=== PATIENT | male | born 1945 | race Caucasian/White ===

== ENCOUNTER 2017-11-24 07:40 | Day surgery (SDC) | payer OTHER ==
--- NOTE | 2017-11-19 15:17 | RAD REPORT ---
EXAM DESCRIPTION: RAD - Chest Pa And Lat (2 Views) - 11/19/2017 3:07 pm CLINICAL HISTORY: preop Chest pain. COMPARISON: Abdomen 1 View (KUB) dated 05/14/2017; Chest Pa And Lat (2 Views) dated 06/09/2016; Abdome n 1 View (KUB) dated 05/23/2016; ABDOMEN 1 VIEW KUB dated 06/04/2015 FINDINGS: The lungs are clear. The heart is upper limit normal in size with sternotomy wires present . No displaced fractures. IMPRESSION: No acute or concerning finding suspected.
[2017-11-19 15:32] LABS: Absolute Lymphocytes (CBC) 1.5 K/uL (0.7-4.9); Absolute Monocytes 0.5 K/uL (0.1-1.3); Absolute Neutrophil 4.8 K/uL (1.8-8.0); Basophils % 0.5 % (0-1.3); Eosinophils % 4.9 % (0-4.4); Hematocrit 45.2 % (39.6-49.0); Lymphocytes % 20.7 % (15.3-44.8); MCH 31.4 pg (27.0-35.0); MCV 91.1 fL (80-100); Monocytes % 7.2 % (3.3-12.3); RBC Red Blood Cell Count 4.96 M/uL (4.33-5.43)
[2017-11-19 15:46] LABS: Protime INR 1.22
[2017-11-19 15:54] LABS: Potassium 4.1 mmol/L (3.5-5.1)
[2017-11-24] MEDS ORDERED: NA CHLORIDE 0.9% 1,000 ML ONE (07:54)
[2017-11-24] MEDS ORDERED: LIDOCAINE 1% MPF 2 ML AMPULE ONE (09:24)
[2017-11-24] MEDS ORDERED: HEPARIN IV ONE (09:39)
[2017-11-24] MEDS ORDERED: FENTANYL CITR 100 MCG/2 ML ONE (09:39)
[2017-11-24] MEDS ORDERED: DEXTROSE IV ONE (09:39)
[2017-11-24] MEDS ORDERED: NA CHLORIDE 0.9% 0 ML ONE (09:39)
[2017-11-24] MEDS ORDERED: ATROPINE SULF 1 MG/10 ML SYR IV ONE (09:39)
[2017-11-24] MEDS ORDERED: MIDAZOLAM HCL 2 MG/2 ML INJ ONE ×2 (09:39→09:40)
[2017-11-24] MEDS ORDERED: HEPA 1000U/500MLS 2,000 UNIT/1,000 ML BAG IV ONE (09:40)
--- NOTE | 2017-11-24 20:34 | OP ---
Surgeon: Willis Boone MD Admitted to my service as an outpatient for heart catheterization. Procedures: Left heart catheterization, selective coronary arteriogram, left internal mammary artery injection, and injection of the vein graft to the obtuse marginal and the right coronary artery. Indication: Unstable angina and coronary artery disease. Procedure In Detail: Mr. Foster was admitted as an outpatient, prepped and draped in the routine ster ile fashion, given 2 mg of Versed for IV sedation. Right common femoral artery access was obtained w ith a 6-[place] sheath. Angio-Seal was used to close the case. Angiography there was normal. A 6-Fr ench catheters, Diann were used to do the catheterization. He was found to have a completely occlu ded [place] LAD, [place] OM, [place] RCA. The vein graft to the RCA and the vein graft to the OM was co mpletely occluded. The TOURE was patent to the distal LAD with excellent flow, and distal to the LAD. There were collaterals to the OM and the RCA. There were no complications. Blood Loss: 5 cc. Postoperative Diagnosis: Severe coronary artery disease. Plan: For medical therapy. I will add Imdur to his regimen. He will go home today. Restart the Xa relto tomorrow. Co-signal operator technical: Katheryn Jon. Total Conscious Sedation: 30 minutes. GISSELL/ALISHA Voice ID: [id number] Report ID: [id number]
== END 2017-11-24 12:19 | disposition home or self-care (01) ==
LOC: CCL 07:40
DX: I25.10 Atherosclerotic heart disease of native coronary artery without angina pectoris (principal); I25.810 Atherosclerosis of coronary artery bypass graft(s) without angina pectoris; I25.82 Chronic total occlusion of coronary artery; I48.92 Unspecified atrial flutter; I10 Essential (primary) hypertension; E78.2 Mixed hyperlipidemia; F17.200 Nicotine dependence, unspecified, uncomplicated; Z82.49 Family history of ischemic heart disease and other diseases of the circulatory system
CPT/HCPCS: 36415; 71046; 80048; 82962 ×2; 85025; 85610; 85730; 93455; C1760; C1893; J2001; J2250 ×2; J3010; J7030; J0583

== ENCOUNTER 2022-08-29 06:30 | Day surgery (SDC) | payer OTHER ==
[2022-08-29] MEDS ORDERED: Ringers Lactate 1,000 ML IV ONE ×2 (06:43→09:44)
[2022-08-29] MEDS ORDERED: propofoL 200 MG/20 ML VIAL IV ONE (07:18)
[2022-08-29] MEDS ORDERED: FENTANYL CITR 100 MCG/2 ML ONE (07:18)
[2022-08-29] MEDS ORDERED: LIDOCAINE 2% MPF 5 ML VIAL ONE ×2 (07:18→07:59)
[2022-08-29] MEDS ORDERED: ONDANSETRON 4 MG/2 ML VIAL ONE (07:19)
--- NOTE | 2022-08-29 07:31 | P.HP ---
Date of Service: 08/29/22 PC: This 77-year-old male presents for an examination under anesthesia, and repair of anal fissure. He also has a mass on the left side of his neck which we will excise. HPC: Patient has been complaining of perirectal pain for the last few months. Has failed medical treatment with sitz bath's stool softeners etc. States that it starts to heal but then comes right back again. PSHx: NAD [colonoscopy 2 years ago] PMHx: CHF, apparently episode of A-fib Social Hx: No known allergies, takes Xarelto and Lasix. He has also been on antibiotic recently Sys R: No cough, wheeze, shortness of breath. No chest pain or palpitations. Has urinary frequency aggravated by his Lasix therapy. O/E: Awake alert vital signs are stable HEENT: Within normal limits Chest: Chest movement equal bilaterally Abd: Negative [place]: Intact Data: Within normal limits Impression: Anal fissure Plan: I will take this patient to the operating room to do an examination under anesthesia, possible sphincterotomy, and address his anal fissure once we can evaluate it fully while he is asleep. The risks of this procedure have been discussed with the patient. The possibility of bleeding, infection, need for further surgeries and procedures were explained. Incontinence, ongoing issues in the area were explained. He understands and wants us to proceed.
[2022-08-29] MEDS ORDERED: KETAMINE HCL IN 0.9 % NACL 50 MG/5 ML SYRINGE IV ONE (08:00)
[2022-08-29] MEDS ORDERED: KETOROLAC 30 MG/ML INJ ONE (08:00)
[2022-08-29] MEDS ORDERED: DIPHENHYDRAMINE 50 MG/ML VIAL ONE (09:01)
[2022-08-29] MEDS ORDERED: dexAMETHasone 10 MG/ML VIAL ONE (09:01)
--- NOTE | 2022-08-29 09:01 | P.OP ---
Preoperative diagnosis: Anal fissure, mass left side of neck Postoperative diagnosis: Anal fissure, fistula, mass left side of neck Primary procedure: Lateral sphincterotomy Secondary procedure: Fistulotomy Other procedure(s): Excision of mass from the left side of the neck Specimen: Specimen from mass on left neck Operative Technique: The patient brought the operating room and placed supine on the table. After the induction of adequate anesthesia, the patient was placed in lithotomy position with his head rolled to the right side. After having prepped the areas with Betadine and draped in usual aseptic manner, attention was turned towards this mass on the left neck. A skin incision was made over it. This is after it had been injected with 1% lidocaine. This brought down through the skin and stanley bcutaneous tissue. We found this hard indurated mass consistent with most likely lymph node. This was excised from the surrounding tissue. It was quite fragmented when it came out. The area was checked for hemostasis. 2 6 as of 6 were used to control a bleeding blood vessel. The area was then packed with Surgicel cotton, and left open at this time. Attention was now turned towards the perianal area. After placing a rectal probe, we could visualize the lower anal canal. We could see that there was marked increased tone on the external sphincter. Using an 11 blade we were able to do a lateral sphincterotomy this was denied was brought through the mucosa onto the muscle and using gentle [id number] issue we were able to release the muscle with minimal swelling. At this point where we could only barely admit 2 fingers we now could easily get 3 inside. You could also palpate the muscle and see that we had greatly relieved any spasm in that area attention was now turned towards the actual perineal area we could see that there was an open inguinal fistula on the skin edge a probe was placed into this so this was traced upward this area was opened the underlying tissue was then excised using electrocautery the wound was left open at this point careful inspection around the rest of the anal canal did not show any other gross pathology he does have a few small insignificant internal and external hemorrhoids with some minimal skin tags these were all left alone. At this point the anal instruments were were withdrawn. Adequate hemostasis was insured. 1 stitch was placed across the fistulotomy site. Attention was turned back up towards the neck. This was noted to be dry the reason we delayed closure was because the patient is on Xarelto we will make sure we have her adequate hemostasis the area in the neck was now just loosely approximated with 2 sutures of chromic stitch sterile dressing was then applied. At the end of the procedure the patient was in a stable condition when sent to the recovery room. Needle sponge instrument count were correct. No drains were placed. Complications: None Transferred to: Recovery Room Condition: Good
[2022-08-29 09:30] VITALS: O2SAT 97
[2022-08-29 10:04] VITALS: BP 135/53; TEMP 96.9
== END 2022-08-29 12:00 | disposition home or self-care (01) ==
LOC: OR 06:30
PROVIDERS: ATTEND Surgery
PROC: 0JB50ZZ Excision of Left Neck Subcutaneous Tissue and Fascia, Open Approach (ICD-10-PCS; 2022-08-29)
PROC: 0D8R3ZZ Division of Anal Sphincter, Percutaneous Approach (ICD-10-PCS; principal; 2022-08-29 07:30)
DX: K60.2 Anal fissure, unspecified (principal); K60.3 Anal fistula; R22.1 Localized swelling, mass and lump, neck; M79.89 Other specified soft tissue disorders
CPT/HCPCS: 46080; 11422; 88304; 46270; J2704; J1200; J2001 ×2; J1100; J2405; J7120 ×2; 88305; J3010

== ENCOUNTER → 2023-02-18 | Day surgery (SDC) | payer OTHER ==
[~2023-02-18] MED LIST: ATROPINE SULF 1 MG/10 ML SYR IV ONE; FLUMAZENIL 0.1 MG/ML (5 mL VIAL) IV ONE; HYDRALAZINE HCL 20 MG/ML VIAL ONE; METOPROLOL TARTRATE 5 MG/5 ML INJ IV ONE; MIDAZOLAM HCL 10 ML ONE; NA CHLORIDE 0.9% 500 ML ONE
[2023-02-18 11:35] VITALS: TEMP 97.6
[2023-02-18 11:38] VITALS: BP 120/54; O2SAT 100
--- NOTE | 2023-02-18 18:07 | OP ---
Date of Procedure: 02/18/2023 Surgeon: MIL RAMIREZ Procedure Performed: Transesophageal echocardiogram. Indication: Mitral valve regurgitation. Description Of Procedure: After risks, benefits, and alternatives were explained, patient agreed to procedure and signed informed consent. Patient was brought into the OR room. After proper time-out, propofol was administered by Anesthesia and NIRMALA probe was inserted and NIRMALA was completed without dif ficulty. NIRMALA probe was removed and patient was sent to Recovery in stable condition. Conclusion: Successful transesophageal echocardiogram with severe mitral valve regurgitation. Plan: Mitral valve repair/replacement in the near future. /ALISHA Voice ID: [id number] Report ID: [id number]
--- NOTE | 2023-02-19 06:34 | TEE ---
TRANSESOPHAGEAL ECHOCARDIOGRAM REPORT CARDIOLOGY DEPARTMENT DATE OF STUDY: 02/18/2023 HEIGHT: 5'11" WEIGHT: 198 lbs DIAGNOSIS: MITRAL VALVE REGURGITATION SOCIAL SERVICES COMMENTS: NIRMALA CARDIAC HISTORY: CATHERIZATION: SURGERY: PROSTHETIC VALVE: PACEMAKER: 2 DIMENSIONAL ASSESSMENT: RIGHT ATRIUM: LEFT ATRIUM: RIGHT VENTRICLE: LEFT VENTRICLE: TRICUSPID VALVE: MITRAL VALVE: PULMONIC VALVE: AORTIC VALVE: PERICARDIAL EFFUSION: AORTIC ROOT: EJECTION FRACTION: 40-45 % LEFT VENTRICULAR WALL MOTION: DOPPLER/COLOR FLOW: COMMENTS: 1. TRANSESOPHAGEAL ECHOCARDIOGRAM PROBE WAS INSERTED, NO DIFFICULTY 2. SEVERE MITRAL REGURGITATION IS PRESENT 3. MILD TRICUSPID REGURGITATION 4. MILDLY DEPRESSED LEFT VENTRICULAR EJECTION FRACTION 40-45% TECHNOLOGIST: MARY JANE CHAVEZ
== END | disposition home or self-care (01) ==
LOC: EKG 06:00
PROVIDERS: ATTEND Internal Medicine
DX: I34.0 Nonrheumatic mitral (valve) insufficiency (principal); R79.89 Other specified abnormal findings of blood chemistry; I25.10 Atherosclerotic heart disease of native coronary artery without angina pectoris; I11.0 Hypertensive heart disease with heart failure; I50.22 Chronic systolic (congestive) heart failure; I48.0 Paroxysmal atrial fibrillation; I27.21 Secondary pulmonary arterial hypertension; Z87.891 Personal history of nicotine dependence; Z79.01 Long term (current) use of anticoagulants; Z79.899 Other long term (current) drug therapy; Z82.49 Family history of ischemic heart disease and other diseases of the circulatory system
CPT/HCPCS: 93312; J2250; J7040; J0360; J0461

== ENCOUNTER 2024-07-06 14:43 | Observation (INO) | payer OTHER ==
[2024-07-06] MEDS ORDERED: FUROSEMIDE 40 MG/4 ML VIAL ONE (15:52)
--- NOTE | 2024-07-06 16:18 | RAD REPORT ---
Procedure: Chest Single View HISTORY: Shortness of breath COMPARISON: 2022 FINDINGS: Mild bilateral pulmonary opacities No significant pleural effusion noted. The heart is markedly enlarged. Pacemaker leads/defibrillator in place. Post surgical changes involve the chest. IMPRESSION: These findings probably indicate mild CHF
[2024-07-06 16:30] LABS: Absolute Eosinophils 0.1 K/uL (0-0.5); Absolute Lymphocytes (CBC) 0.6 K/uL (0.7-4.9); Absolute Monocytes 0.6 K/uL (0.1-1.3); Absolute Neutrophil 5.5 K/uL (1.8-8.0); Basophils % 0.4 % (0-1.3); Eosinophils % 2.1 % (0-4.4); Hematocrit 40.4 % (39.6-49.0); Lymphocytes % 9.1 % (15.3-44.8); MCH 30.8 pg (27.0-35.0); MCHC 34.6 g/dL (32.0-36.0); MCV 89.1 fL (80-100); MPV 9.4 fL (7.6-11.3); Monocytes % 8.1 % (3.3-12.3); Neutrophils % 80.3 % (41.7-73.7); Nucleated Red Blood Cells % 0.1 % (0-0); Platelets 116 thou/uL (152-406); RBC Red Blood Cell Count 4.53 M/uL (4.33-5.43); Red Cell Distribution Width 15.2 % (12.1-15.2)
[2024-07-06 16:50] LABS: Albumin 3.3 g/dL (3.4-5.0); Albumin/Globulin Ratio 0.9 (1.1-1.8); Anion Gap 6.7 mEq/L (5.0-15.0); Bilirubin Direct 0.5 mg/dL (0-0.2); Bilirubin Indirect, Calculated 0.7 mg/dL (0.2-0.8); Bilirubin Total 1.2 mg/dL (0.2-1.0); Globulin 3.7 g/dL (2.3-3.5); Potassium 3.7 mEq/L (3.5-5.1); Troponin High Sensitivity 28.8 pg/mL (<58.9)
--- NOTE | 2024-07-06 17:06 | ER ---
Nurse's Notes [facility] Name: Tushar Foster Jr Age: 79 yrs Sex: Male : 1945 Arrival Date: 07/06/2024 Time: 14:43 Bed 13 Private MD: Diagnosis: CHF exacerbation Presentation: 07/06 15:09 Chief complaint: Patient states: edema on legs and my lungs , no SOB , Dr. Cheema iw wanted him to be admitted , + cough, no SOB. Coronavirus screen: At this time, the client does not indicate any symptoms associated with coronavirus-19. Ebola Screen: No symptoms or risks identified at this time. Initial Sepsis Screen: Does the patient meet any 2 criteria? No. Patient's initial sepsis screen is negative. Does the patient have a suspected source of infection? No. Patient's initial sepsis screen is negative. Risk Assessment: Do you want to hurt yourself or someone else? Patient reports no desire to harm self or others. Onset of symptoms was June 04, 2024. 15:09 Method Of Arrival: Ambulatory iw 15:09 Acuity: LAURA 3 iw Historical: - Allergies: 15:11 No Known Allergies; iw - PSHx: 15:11 mitral valve and pacemaker; iw - Immunization history:: Adult Immunizations up to date. - Infectious Disease History:: Denies. - Social history:: Smoking status: Patient reports the use of cigarette tobacco products, cigars. - Family history:: not pertinent. Screenin:[facility] ED Fall Risk Assessment (Adult) History of falling in the last 3 months, ph including since admission No falls in past 3 months (0 pts) Confusion or Disorientation No (0 pts) Intoxicated or Sedated No (0 pts) Impaired Gait No (0 pts) Mobility Assist Device Used No (0 pt) Altered Elimination No (0 pt) Score/Fall Risk Level 0 - 2 = Low Risk Oriented to surroundings, Maintained a safe environment, Hourly rounding (assess needs \T\ fall precautionary measures) done. Abuse screen: Denies threats or abuse. Denies injuries from another. Nutritional screening: No deficits noted. Tuberculosis screening: No symptoms or risk factors identified. Assessment: 16:21 General: Appears in no apparent distress. comfortable, well groomed, Behavior is calm, ph cooperative, appropriate for age. Pain: Denies pain. Neuro: Level of Consciousness is awake, alert, obeys commands, Oriented to person, place, time, situation. Cardiovascular: Reports shortness of breath, Capillary refill < 3 seconds in bilateral fingers Patient's skin is warm and dry. Rhythm is ventricular pacer. Respiratory: Reports shortness of breath at rest on exertion cough that is non-productive, Airway is patent Respiratory effort is even, unlabored, Breath sounds with crackles bilaterally. Derm: Skin is pink, warm \T\ dry. 18:08 Reassessment: Patient appears in no apparent distress at this time. Patient and/or ph family updated on plan of care and expected duration. Pain level reassessed. Patient is alert, oriented x 3, equal unlabored respirations, skin warm/dry/pink. 18:29 Reassessment: Patient appears in no apparent distress at this time. Patient and/or ph family updated on plan of care and expected duration. Pain level reassessed. Patient is alert, oriented x 3, equal unlabored respirations, skin warm/dry/pink. 20:30 Reassessment: No changes from previously documented assessment. Patient and/or family rg5 updated on plan of care and expected duration. Pain level reassessed. Patient is alert, oriented x 3, equal unlabored respirations, skin warm/dry/pink. Vital Signs: 15:09 BP 118 / 86; Pulse 90; Resp 18; Temp 98.9; Pulse Ox 98% on R/A; Weight 90.72 kg; Height iw 5 ft. 11 in. ; 16:30 BP 121 / 82; Pulse 81; Resp 19; Pulse Ox 95% ; ph 18:08 BP 127 / 74; Pulse 83; Resp 18; Pulse Ox 98% on R/A; ph 19:30 BP 130 / 68; Pulse 92; Resp 18; Pulse Ox 99% on R/A; Pain 0/10; rg5 20:30 BP 128 / 67; Pulse 81; Resp 17; Pulse Ox 99% on R/A; Pain 0/10; rg5 15:09 Body Mass Index 27.89 (90.72 kg, 180.34 cm) iw 19:30 Pain Scale: Adult rg5 20:30 Pain Scale: Adult rg5 Vitals: 16:36 Cardiac Rhythm Assessment Paced. ED Course: 14:47 Patient arrived in ED. im 14:52 Obinna Mar MD is Attending Physician. rt 15:11 Triage completed. iw 15:12 Arm band placed on. iw 15:46 Mary Ellen Mackey RN is Primary Nurse. ph 16:00 Missed attempt(s): 20 gauge in right forearm. Bleeding controlled, band aid applied, ph catheter tip intact. Missed attempt(s): 22 gauge in right forearm. Bleeding controlled, band aid applied, catheter tip intact. 16:09 XRAY Chest (1 view) In Process Unspecified. EDMS 16:21 Patient has correct armband on for positive identification. Placed in gown. Bed in low ph position. Call light in reach. Side rails up X 1. Client placed on continuous cardiac and pulse oximetry monitoring. NIBP monitoring applied. forging die finisher on. 16:22 Initial lab(s) drawn, by me, sent to lab. Inserted saline lock: 22 gauge in right cc6 forearm, using aseptic technique. Blood collected. Flushed with 10 mL NS. 17:05 Malcom Lawson MD is Hospitalizing Provider. rt 19:41 Provided Education on: needs for admit. rg5 19:41 No provider procedures requiring assistance completed. Patient admitted, IV remains in rg5 place. intact, No redness/swelling at site. 20:14 Primary Nurse role handed off by Mary Ellen Mackey RN rv1 20:18 Hiro Cisneros RN is Primary Nurse. rg5 Administered Medications: 16:30 Drug: Furosemide IVP 40 mg IVP once; give over 2 minutes Route: IVP; Site: right ph antecubital; 18:08 Follow up: Response: No adverse reaction ph Medication: 16:21 VIS not applicable for this client. ph Output: 18:29 Urine: 1350ml (Voided); Total: 1350ml. ph Outcome: 17:06 Decision to Hospitalize by Provider. rt 19:41 Admitted to ER Hold. Please see [facility] for further documentation. rg5 19:41 Condition: stable 19:41 Instructed on the need for admit, 20:59 Patient left the ED. rg5 Signatures: Dispatcher [employer] EDMS Mariel Al RN RN Mary Ellen Mackey RN RN Obinna Mar MD MD rt Lenora Harris rv1 Shirley Barron Hiro Cisneros RN RN rg5 Melissa Coyle cc6
--- NOTE | 2024-07-06 17:06 | EDPHYS ---
Physician Documentation [facility] Name: Tushar Foster Jr Age: 79 yrs Sex: Male : 1945 Arrival Date: 07/06/2024 Time: 14:43 Bed 13 Private MD: ED Physician Obinna Mar HPI: 07/06 16:26 This 79 yrs old Male presents to ER via Ambulatory with complaints of Congestion, sent rt by . 16:26 Patient presents to the ED with dyspnea, bilateral lower extremity edema. This been rt present for the past week. He does take Lasix 20 mg twice daily but the symptoms continue to worsen. He was seen by the dba manager today, instructed to come to the ED for IV Lasix. Denies other acute complaints at this time, symptoms are moderate severity, no other aggravating or limiting factors.. Historical: - Allergies: 15:11 No Known Allergies; iw - PSHx: 15:11 mitral valve and pacemaker; iw - Immunization history:: Adult Immunizations up to date. - Infectious Disease History:: Denies. - Social history:: Smoking status: Patient reports the use of cigarette tobacco products, cigars. - Family history:: not pertinent. ROS: 16:26 Constitutional: Negative for fever, chills, and weight loss, Abdomen/GI: Negative for rt abdominal pain, nausea, vomiting, diarrhea, and constipation, MS/Extremity: Negative for injury and deformity, Skin: Negative for injury, rash, and discoloration, Neuro: Negative for headache, weakness, numbness, tingling, and seizure, 16:26 Cardiovascular: Positive for edema, paroxysmal nocturnal dyspnea, 16:26 Respiratory: Positive for cough, shortness of breath, Exam: 16:26 Constitutional: This is a well developed, well nourished patient who is awake, alert, rt and in no acute distress. Head/Face: Normocephalic, atraumatic. Chest/axilla: Normal chest wall appearance and motion. Nontender with no deformity. No lesions are appreciated. Cardiovascular: Regular rate and rhythm with a normal S1 and S2. No gallops, murmurs, or rubs. Normal PMI, no JVD. No pulse deficits. Abdomen/GI: Soft, non-tender, with normal bowel sounds. No distension or tympany. No guarding or rebound. No evidence of tenderness throughout. Skin: Warm, dry with normal turgor. Normal color with no rashes, no lesions, and no evidence of cellulitis. 16:26 ECG was reviewed by the Attending Physician. 16:26 Respiratory: Crackles, wheezes heard in all lung ledbetter, no respiratory distress, 16:26 Musculoskeletal/extremity: 3+ pitting bilateral lower extremity edema. Vital Signs: 15:09 BP 118 / 86; Pulse 90; Resp 18; Temp 98.9; Pulse Ox 98% on R/A; Weight 90.72 kg; Height iw 5 ft. 11 in. ; 16:30 BP 121 / 82; Pulse 81; Resp 19; Pulse Ox 95% ; ph 18:08 BP 127 / 74; Pulse 83; Resp 18; Pulse Ox 98% on R/A; ph 19:30 BP 130 / 68; Pulse 92; Resp 18; Pulse Ox 99% on R/A; Pain 0/10; rg5 20:30 BP 128 / 67; Pulse 81; Resp 17; Pulse Ox 99% on R/A; Pain 0/10; rg5 15:09 Body Mass Index 27.89 (90.72 kg, 180.34 cm) iw 19:30 Pain Scale: Adult rg5 20:30 Pain Scale: Adult rg5 MDM: 15:14 Medical Screening Exam initiated rt 17:06 Differential Diagnosis CHF, pulmonary edema. Data reviewed: vital signs, nurses notes, rt lab test result(s), EKG, radiologic studies. Consideration of Admission/Observation Patient was admitted/placed on observation. Management of patient was discussed with the following: Discussed with Dr. Lawson, Dr. Latham. I considered the following discharge prescriptions or medication management in the emergency department Medications were administered in the Emergency Department. See MAR. Independent interpretation of the following test(s) in the Emergency Department X-Ray: My interpretation is CHF syndrome interpretation of x-ray images. Test considered but Not performed: CT: Low suspicion for PE, CT angiogram not indicated. Care significantly affected by the following chronic conditions: Congestive Heart Failure. Counseling: I had a detailed discussion with the patient and/or guardian regarding the historical points, exam findings, and any diagnostic results supporting the discharge/admit diagnosis, lab results, radiology results, the need for further work-up and treatment in the hospital. Response to treatment: the patient's symptoms have mildly improved after treatment. 07/06 15:27 Order name: LFT's; Complete Time: 16:51 rt 07/06 15:27 Order name: NT PRO-BNP; Complete Time: 16:51 rt 07/06 15:27 Order name: Troponin HS; Complete Time: 16:51 rt 07/06 15:39 Order name: Basic Metabolic Panel; Complete Time: 16:51 EDMS 07/06 15:39 Order name: CBC with Automated Diff; Complete Time: 16:51 EDMS 07/06 15:27 Order name: XRAY Chest (1 view); Complete Time: 16:21 rt 07/06 15:27 Order name: EKG; Complete Time: 15:39 rt 07/06 17:16 Order name: CONS Physician Consult EDMS 07/06 15:27 Order name: Cardiac monitoring; Complete Time: 16:33 rt 07/06 15:27 Order name: EKG - Nurse/Tech; Complete Time: 16:33 rt 07/06 15:27 Order name: IV Saline Lock; Complete Time: 16:20 rt 07/06 15:27 Order name: Labs collected and sent; Complete Time: 16:20 rt 07/06 15:27 Order name: O2 Per Protocol; Complete Time: 16:20 rt 07/06 15:27 Order name: O2 Sat Monitoring; Complete Time: 16:20 rt EC:26 Rate is 83 beats/min. Rhythm is regular, Paced with No ectopy, ST, T waves, conduction rt consistent with ventricularly paced rhythm. QRS [place] is Normal. QRS interval is normal. QT interval is normal. No Q waves. Administered Medications: 16:30 Drug: Furosemide IVP 40 mg IVP once; give over 2 minutes Route: IVP; Site: right ph antecubital; 18:08 Follow up: Response: No adverse reaction ph Disposition Summary: 07/06/24 17:06 Hospitalization Ordered Notes: Hospitalization Status: Observation rt Provider: Malcom Lawson rt Location: Telemetry/MedSurg (observation) rt Condition: Stable rt Problem: an acute exacerbation rt Symptoms: have improved rt Bed/Room Type: Standard rt Room Assignment: 415(07/06/24 19:58) rv1 Diagnosis - CHF exacerbation rt Forms: - Medication Reconciliation Form rt - SBAR form rt - Leadership Thank You Letter rt Signatures: Dispatcher [employer] EDMS Mariel Al, RN RN iw Mary Ellen Mackey RN RN ph Obinna Mar MD MD rt Lenora Harris rv1 Corrections: (The following items were deleted from the chart) 15:39 15:39 BASIC METABOLIC PANEL+C.LAB.BRZ ordered. EDMS EDMS 15:39 15:39 CBC+H.LAB.BRZ ordered. EDMS EDMS 15:39 15:39 HEPATIC FUNCTION+C.LAB.BRZ ordered. EDMS EDMS 15:39 15:39 PROBNP+C.LAB.BRZ ordered. EDMS EDMS 15:39 15:39 Troponin High Sensitivity+C.LAB.BRZ ordered. EDMS EDMS 19:58 17:06 rt rv1
--- NOTE | 2024-07-06 20:27 | P.SSS ---
Patient History Date of Service: 07/06/24 Reason for admission: EDEMA, DYSPNEA History of Present Illness: MR. 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 HE WAS SENT BY DR RAMIREZ TO ER FOR DIURESIS. AFTER ONE DOSE OF LASIX IV HE IS A LOT BETTER. HIS DIET CAN BE HEAVY IN SALT AT LEAST ONCE A WEEK WHEN HE GOES TO A [employer] [facility]. Allergies No Known Allergies Allergy (Verified 03/04/23 13:14) Home Medications: Metoprolol Succinate [Toprol Xl] 100 mg PO BID 04/03/15 Simvastatin [Zocor] 20 mg PO BEDTIME 04/03/15 Alprazolam [Xanax] 0.25 mg PO BID PRN 08/28/22 Calcium Carb/D3/Magnesium/Zinc [Maximilian Mag Zinc + D Tablet] 1 each PO DAILY 08/28/22 Furosemide [Lasix] 20 mg PO DAILY 08/28/22 Furosemide [Lasix] 40 mg PO DAILY 08/28/22 Iron,Carb/Vit C/Vit B12/Folic [Iron 100 Plus Tablet] 1 tab PO DAILY 08/28/22 Nancy-3 Fatty Acids [Nancy-3] 1,000 mg PO TID 08/28/22 Rivaroxaban [Xarelto] 20 mg PO DAILY 08/28/22 Valsartan 320 mg PO DAILY 08/28/22 Vitamin D3/Vitamin K2 (Mk4) [K2 Plus D3 Tablet] 1 each PO 08/28/22 Review of Systems 10-point ROS is otherwise unremarkable General: Weakness Physical Examination - Physical Exam General: Oriented x3, Mild distress HEENT: Atraumatic, PERRLA, Mucous membr. moist/pink, EOMI, Sclerae nonicteric Neck: Supple, 2+ carotid pulse no bruit, No LAD, JVD distended Respiratory: Clear to auscultation bilaterally, Normal air movement Cardiovascular: Regular rate/rhythm, Normal S1 S2, Edema (MOD BILAT.) Gastrointestinal: Normal bowel sounds, No tenderness Musculoskeletal: No tenderness Integumentary: No rashes Neurological: Normal gait, Normal speech, Normal strength at 5/5 x4 extr, Normal tone, Normal affect Lymphatics: No axilla or inguinal lymphadenopathy - Studies Laboratory Data (last 24 hrs) 07/06/24 07/06/24 16:17 16:17 WBC 6.80 Hgb 14.0 Hct 40.4 Plt Count 116 L Sodium 140 Potassium 3.7 BUN 17 Creatinine 1.18 Glucose 110 H Total Bilirubin 1.2 H AST 19 ALT 35 Alkaline Phosphatase 103 - Diagnosis (Problem(s)) (1) Acute on chronic systolic heart failure Current Visit: Yes Status: Acute Plan: LASIX IV BID. KCL PO HE IS ALREADY ON ENTRESTO BID. HE NEEDS TO WATCH HIS DIET TO AVOID EXACERBATIONS. I HAVE ASKED HIM TO AVOID PROCESSED FOODS AND ASK FOR NO SALT WHEN HE GOES TO [facility]. HE CAN AVOID CHILS, TORTILLAS, CHEESE, RICE AND SALT FROM OTHER FOODS. HE WILL BE STABLE TO GO HOME TOMORROW AFTERNOON. - Disposition Disposition: ROUTINE DISCHARGE
[2024-07-06] MEDS: SACUBITRIL/VALSARTAN 49/51 MG TAB PO SCH (21:52)
[2024-07-06] MEDS: METOPROLOL XL 100 MG TAB PO SCH (21:52)
[2024-07-06] MEDS: ATORVASTATIN 40 MG TAB PO SCH (21:52)
[2024-07-06] MEDS: hydrOXYzine HCL 25 MG TAB PO PRN (23:46)
[2024-07-06 23:53] VITALS: BMI 27.8
[2024-07-07 06:18] LABS: Absolute Eosinophils 0.2 K/uL (0-0.5); Absolute Lymphocytes (CBC) 0.8 K/uL (0.7-4.9); Absolute Monocytes 0.7 K/uL (0.1-1.3); Absolute Neutrophil 4.5 K/uL (1.8-8.0); Basophils % 0.3 % (0-1.3); Eosinophils % 2.9 % (0-4.4); Hematocrit 38.7 % (39.6-49.0); Hemoglobin 13.3 g/dL (13.6-17.9); Lymphocytes % 12.7 % (15.3-44.8); MCH 30.6 pg (27.0-35.0); MCHC 34.3 g/dL (32.0-36.0); MCV 89.2 fL (80-100); MPV 9.5 fL (7.6-11.3); Monocytes % 10.7 % (3.3-12.3); Neutrophils % 73.4 % (41.7-73.7); Nucleated Red Blood Cells % 0.1 % (0-0); Platelets 117 thou/uL (152-406); RBC Red Blood Cell Count 4.33 M/uL (4.33-5.43); Red Cell Distribution Width 14.9 % (12.1-15.2)
[2024-07-07 06:37] LABS: Anion Gap 6.8 mEq/L (5.0-15.0); Potassium 3.8 mEq/L (3.5-5.1)
[2024-07-07 08:01] VITALS: BP 116/67
[2024-07-07] MEDS: SPIRONOLACTONE 25 MG TABLET PO SCH ×2 (08:19→08:20)
[2024-07-07] MEDS: ASPIRIN EC 81 MG TAB PO SCH (08:19)
[2024-07-07] MEDS: FUROSEMIDE 40 MG/4 ML VIAL IV SCH (08:21)
[2024-07-07] MEDS: ASPIRIN 81 MG CHEWABLE TABLET PO SCH (08:21)
[2024-07-07] MEDS: CLOPIDOGREL 75 MG TABLET PO SCH ×2 (08:21)
[2024-07-07] MEDS: METOPROLOL XL 100 MG TAB PO SCH (08:22)
[2024-07-07] MEDS: HOME MED 1 EA UNK (Sacubitril/Valsartan [Entresto 97 Mg-103 Mg Tablet] Tablet) PO SCH (08:22)
[2024-07-07 12:01] VITALS: TEMP 98
[2024-07-07 12:16] VITALS: O2SAT 95
[2024-07-07] MEDS ORDERED: ATORVASTATIN CALCIUM 40 MG PO SCH (21:00)
[2024-07-08] MEDS ORDERED: ASPIRIN 81 MG CHEWABLE TABLET PO SCH (09:00)
== END 2024-07-07 14:00 | disposition home or self-care (01) ==
LOC: ER 14:43 → ERHOLD 17:13 → 4TH 20:37
PROVIDERS: ADMIT Internal Medicine; ATTEND Internal Medicine
DX: I50.23 Acute on chronic systolic (congestive) heart failure (principal); R06.00 Dyspnea, unspecified; I42.9 Cardiomyopathy, unspecified; F17.210 Nicotine dependence, cigarettes, uncomplicated
CPT/HCPCS: 93005; 85025 ×2; 80048 ×2; 36415; 80076; 84484; 83880; 71045; J1938 ×2; G0378 ×3